=== PATIENT | male | born 1965 | race Caucasian/White ===

== ENCOUNTER 2023-05-30 08:25 | Day surgery (SDC) | payer OTHER ==
[~2023-05-30] VITALS: Ht 175.3 cm; Wt 77.1 kg
[~2023-05-30 08:25] MED LIST: OMEP40EC24 PO
[2023-05-30] MEDS ORDERED: fentaNYL citrate 0.05 MG/ML VIAL ONE (09:26)
[2023-05-30] MEDS ORDERED: MIDAZOLAM 2 MG/2 ML VIAL ONE (09:27)
[2023-05-30] MEDS ORDERED: MIDAZOLAM 2 MG/2 ML VIAL IVP ONE (11:05)
== END 2023-05-30 10:40 | disposition home or self-care (01) ==
LOC: MDS 08:25 → MMU 08:30 → MDS 10:40
PROVIDERS: ATTEND Internal Medicine Gastroenterology
DX: K30 Functional dyspepsia (principal); K20.90 Esophagitis, unspecified without bleeding; K44.9 Diaphragmatic hernia without obstruction or gangrene; E78.00 Pure hypercholesterolemia, unspecified; Z80.0 Family history of malignant neoplasm of digestive organs; Z79.899 Other long term (current) drug therapy
CPT/HCPCS: 43235; J2250; J3010